=== PATIENT | male | born 1985 | race Caucasian/White ===

== ENCOUNTER 2016-09-01 05:28 | Day surgery (SDC) | payer OTHER ==
[2016-08-30 17:48] LABS: BASOPHILS 0.3 %; BASOPHILS ABSOLUTE 0.02 10/3/uL (0.0-0.16); EOSINOPHILS 2.5 %; EOSINOPHILS ABSOLUTE 0.19 10/3/uL (0.0-0.53); HEMATOCRIT 42.2 % (40.0-51.0); HEMOGLOBIN 15.3 g/dL (13.6-17.8); IMMATURE GRANULOCYTES 0.3 %; IMMATURE GRANULOCYTES ABSOLUTE 0.02 10/3/uL (0.0-0.11); LYMPHOCYTES 32.3 %; LYMPHOCYTES ABSOLUTE 2.44 10/3/uL (0.67-4.30); MANUAL DIFF NO %; MEAN CORPUS HGB CONC 36.3 g/dL (32.0-36.0); MEAN CORPUSCULAR HEMOGLOB 30.7 pg (26.0-34.0); MEAN CORPUSCULAR VOLUME 84.7 fL (80-100); MEAN PLATELET VOLUME 10.2 fL (9.2-13.0); MONOCYTES 7.4 %; MONOCYTES ABSOLUTE 0.56 10/3/uL (0.21-1.20); NEUTROPHILS 57.2 %; NEUTROPHILS ABSOLUTE 4.33 10/3/uL (2.02-8.40); PLATELET COUNT 238 10/3/uL (150-400); RBC DISTRIBUTION WIDTH 12.5 % (12.0-16.0); RED CELL COUNT 4.98 10/6/uL (4.7-6.1); WHITE BLOOD CELLS 7.6 10/3/uL (4.5-10.5)
[2016-08-30 17:59] LABS: PARTIAL THROMBO TIME 28.6 SEC (22.5-37.2); PROTIME (NOT ORD) 12.9 SEC (12.0-14.5)
[2016-08-30 18:04] LABS: BUN (BLOOD UREA NITROGEN) 13 MG/DL (6-23); CALCIUM, SERUM 9.4 MG/DL (8.5-10.4); CHLORIDE, SERUM 103 MMOL/L (96-112); CO2 (CARBON DIOXIDE) 27 MMOL/L (24-34); CREATININE 0.93 MG/DL (0.70-1.30); GFR AFRICAN AMERICAN 127 ML/MIN (>=60); GFR NON AFRICAN AMERICAN 110 ML/MIN (>=60); GLUCOSE, SERUM 87 MG/DL (60-99); POTASSIUM, SERUM 4.2 MMOL/L (3.5-5.3); SODIUM, SERUM 138 MMOL/L (135-148)
--- NOTE | ~2016-09-01 | OP ---
Record Of Operation [facility] [address] [place]. 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 PROCEDURES PERFORMED: 1. Septoplasty. 2. Bilateral inferior turbinoplasty. INDICATIONS AND SIGNIFICANT HISTORY: The patient is a 31-year-old or year old male with significant history of persistent nasal airway obstruction. He was felt not responsive to topical nasal steroid spray or saline irrigation. He was felt to benefit from a septoplasty as well as bilateral inferior turbinoplasty, and was scheduled for such. OPERATIVE PROCEDURE AND FINDINGS: After informed consent was obtained, the patient was brought to the operating room, placed on the operating room table in supine position. At which point, general endotracheal anesthesia was induced by the Anesthesia Service, and the nose was decongested with topical Afrin pledgets, then 2% lidocaine with 1:100,000 epinephrine was injected approximately 4 mL into the septum on the right and left sides. Through the left nares, the caudal edge of the septum was approached and a vertical midline incision was made. A submucoperichondrial flap was elevated along the left side from anteriorly to posteriorly. Incision was made along the floor of the nose to separate the quadrangular cartilage from the maxillary crest. Next, open Moody forceps was then used to remove the deviated portion of the maxillary crest followed by use of a 4 mm chisel to remove deviated portion of the maxillary crest. A small portion of cartilage was removed. It was the twisted portion. This preserved at least a centimeter and a half dorsal strut, and a centimeter and a half caudal strut. This cartilage was then trimmed to remove the twisted portions. The flat planes of cartilage were then placed back between the septal flaps, and inspection was performed of the nasal septum. It was found to be at position back to midline. The wound was then closed with the 4-0 chromic suture. Attention was then turned toward the inferior turbinates, where the head of the inferior turbinate on the right side was pierced with a suction shaver. Submucous dissection was performed. The remnant of the turbinate was then medialized and lateralized using a Greenfield septal displacer. The process was repeated for the left turbinate. At this point, the patient had undergone septoplasty and inferior turbinoplasty. Septal splints were placed to hold the mucoperichondrial flaps in all position, and the patient was turned back toward Anesthesia, aroused from anesthesia, and taken to the Postanesthesia Care Unit in satisfactory condition. COMPLICATIONS: None. ESTIMATED BLOOD LOSS: Less than 20 mL. Record Of Operation [address] [address] NAME: SONAL YOUNG : 87 STATUS : [facility] PAT#: [id number] AGE: 31 ADM/REG DATE : 09/01/16 MR#: [id number] REPORT SERV DATE: 09/02/16 DICTATED BY: SANJAY MEHTA DATE: 09/02/16 REPORT STATUS : Draft TRANSCRIBED BY: IRAIS DATE: 09/02/16 IV FLUIDS: Per Anesthesia. DLA/MODL Sanjay Mehta M.D. / [id number] CC: Jaspal Kennedy MD
[~2016-09-01 05:28] MED LIST: NASACORTAQ NAS; VITAMIN D31000 UNIT PO
== END 2016-09-01 13:55 | disposition home or self-care (01) ==
LOC: SDC 05:28
PROVIDERS: Otolaryngology
PROC: 09BM0ZZ Excision of Nasal Septum, Open Approach (ICD-10-PCS; principal; 2016-09-01 06:45)
DX: J34.2 Deviated nasal septum (principal); J34.89 Other specified disorders of nose and nasal sinuses; J34.3 Hypertrophy of nasal turbinates; I10 Essential (primary) hypertension; F32.9 Major depressive disorder, single episode, unspecified; K76.0 Fatty (change of) liver, not elsewhere classified; Z98.890 Other specified postprocedural states
CPT/HCPCS: 80048; 85025; 85610; 85730; 88300; 94640; A9270-GY; J0690; J1170; J2250; J2270; J2405; J2710; J3010